=== PATIENT | male | born 1965 | race Caucasian/White ===

== ENCOUNTER 2025-04-03 01:43 | Emergency (ER) | payer MEDICAID, SELFPAY ==
--- NOTE | 2025-04-03 01:47 | ED.LOWEXIN ---
HPI - Extremity Injury (Lower) General Chief Complaint: Extremity Problem,Nontraumatic Stated Complaint: hip dislocation + etoh Time Seen by Provider: 04/03/25 01:47 History of Present Illness HPI Narrative: Patient is a 59-year-old male who presents via EMS for evaluation of right hip dislocation, he states that he had a hip replacement done 5 years ago at [facility], states that he has been having recurrent hip dislocations states he is supposed to follow up with a surgeon in the next few months, he states that he was on the bus going to the [facility] when it just ?dislocated. He denies any trauma falls not any blood thinners. States that it dislocated 2 weeks ago. Related Data Allergies Allergy/AdvReac Type Severity Reaction Status Date / Time No Known Drug Allergies Allergy Verified 04/03/25 01:57 Review of Systems Review of Systems Narrative: General: Denies fever, chills, weight loss HEENT: Denies headache, eye drainage, eye irritation, head trauma, sore throat, voice change Cardiovascular: Denies any chest pain, palpitations, tachycardia Respiratory: Denies any shortness of breath, cough, wheeze, stridor GI/: Denies any abdominal pain, nausea, vomiting, diarrhea, bright red blood per rectum, melanotic stools, urinary frequency, urinary retention, dysuria, hematuria MSK: Positive right hip pain/dislocation Skin: Denies any rashes, lesions, discoloration Neuro: Denies any headache, lightheadedness, dizziness, fainting, weakness Psych: Denies SI/HI Exam Narrative Exam Narrative: General: Cooperative, well-developed, not in acute distress HEENT: Normocephalic, atraumatic, PERRLA, normal sclera, eyelids normal Neck: Active full range of motion, atraumatic Chest: Normal to inspection, negative crepitus, no overlying erythema ecchymosis Respiratory: Normal respiratory effort, not in acute respiratory distress, clear to auscultation bilaterally negative cough, wheeze, tachypnea, rhonchi, rales Cardiology: Regular rate rhythm negative gallop, murmur, rubs GI/: No tenderness to palpation, soft, non rigid, normal to inspection, exam deferred MSK: Patient with shortened externally rotated right hip, he is neurovascularly intact otherwise no other tenderness to palpation of any bony prominences Skin: No rashes or lesions noted Neuro: Alert awake oriented x3, moves all 4 extremities spontaneously, cranial nerves intact, able to answer all questions appropriately follows commands appropriately Psych: Cooperative, negative suicidal or homicidal ideations Procedures Orthopedic Joint Reduction Joint #1: Time of procedure: 01:59 Time Out Performed: Yes Side: right Joint Reduction Location: hip Analgesia: none Technique used: other (Captain Chaitanya technique) Post-reduction neuro exam: intact Post-reduction vascular: intact Post Reduction X-Ray Obtained: Yes Post Reduction X-Ray Results: reduced MDM - Extremity Injury (Lower) MDM Narrative Medical decision making narrative: Patient is a 59-year-old male who had recurrent hip dislocations presenting via EMS for evaluation of this. He states he had a hip surgery replacement done 5 years ago at [facility], he states he has been having recurrent hip dislocations over the past several weeks last 1 was 2 weeks ago, he presents via EMS due to the fact that it dislocated when he was waiting to get on a bus on the [employer] terminal. On my initial exam he is neurovascularly intact but he is shortened and externally rotated, initial x-rays does show dislocated non [place] hip, Captain Chaitanya technique was performed to successfully reduce the hip, post reduction x-rays were confirmed, patient with neurovascularly intact lower extremities he was instructed to follow up with his surgeon and primary care in outpatient setting he verbalized understanding agrees to being discharged home with outpatient follow up Discharge Plan Departure Patient Disposition: Home Clinical Impression: Dislocation, hip Instructions: DI for Hip Dislocation -- Adult Activity Restrictions/Additional Instructions: Please follow up with your surgeon to your recurrent hip dislocations Please limit the amount of physical activity Please read the discharge instructions sheet carefully and bring all papers to all doctor follow-up visits, as it may contain information that your doctor may want to see. Disease processes change and evolve, if your symptoms worsen or if you develop any new symptoms that are concerning to you please return for evaluation. Your evaluation today does not show any evidence of any life-threatening/serious illnesses requiring admission to the hospital or surgery. Please follow-up with your doctor for re-evaluation in approximately 1 day. Seek immediate medical attention for any worrisome symptoms. *If you do not have a primary care provider please contact the [facility] Resource line at [phone]. They will ask some questions about your medical history and help get you set up with a doctor in the community. Stand Alone Forms: Patient Portal/API
--- NOTE | 2025-04-03 01:51 | DI.RAD.S_ITS ---
PROCEDURE: XR HIP RT 1V INDICATIONS: dislocation TECHNIQUE: Single-view of the hip were acquired. COMPARISON: None. FINDINGS: Bones: Post right hip arthroplasty. There is superior dislocation of the femoral head relative to the acetabulum. No suspicious bony lesions. The visualized pelvic ring appears intact. Soft tissues: No suspicious soft tissue calcifications or masses. IMPRESSION: Superior dislocation of femoral head prosthesis relative to the acetabulum. Approved by: Jenna Fernandez M.D.,Ph.D. on 04/03/2025 at 2:57
[2025-04-03 01:52] VITALS: BP 148/90; PULSE 80; RESP 18; TEMP 35.9; O2SAT 97; BMI 31.6
--- NOTE | 2025-04-03 01:58 | DI.RAD.S_ITS ---
PROCEDURE: XR HIP RT 1V INDICATIONS: post reduction TECHNIQUE: Single view of the hip were acquired. COMPARISON: Same-day hip radiographs. FINDINGS: Bones: Successful interval reduction of right hip arthroplasty dislocation. Hardware elements appear to be in appropriate position. No fractures or dislocations. No suspicious bony lesions. The visualized pelvic ring appears intact. Soft tissues: No suspicious soft tissue calcifications or masses. IMPRESSION: Successful reduction of right hip arthroplasty dislocation. No evidence of acute fracture. If there is high risk for internal derangement, consider further evaluation with CT. Approved by: Jenna Fernandez M.D.,Ph.D. on 04/03/2025 at 3:01
[2025-04-03 02:28] VITALS: BP 136/88; PULSE 88; RESP 16; O2SAT 97
== END 2025-04-03 02:29 | disposition home or self-care (01) ==
PROVIDERS: Emergency Provider Student in an Organized Health Care Education/Training Program
DX: T84.020A Dislocation of internal right hip prosthesis, initial encounter (principal); Y79.2 Prosthetic and other implants, materials and accessory orthopedic devices associated with adverse incidents
CPT/HCPCS: 27265; 73501; 99281; 99283